=== PATIENT | female | born 1950 | race Caucasian/White ===

== ENCOUNTER → 2016-12-14 | Outpatient (CLI) | payer OTHER, MEDICARE | LOC: BRMIMAGING 08:36 | PROVIDERS: ATTEND Family Medicine | DX: Z13.820 Encounter for screening for osteoporosis (principal); M81.0 Age-related osteoporosis without current pathological fracture; Z82.62 Family history of osteoporosis; Z78.0 Asymptomatic menopausal state ==

== ENCOUNTER → 2017-01-01 | Outpatient (CLI) | payer OTHER, MEDICARE ==
[~2017-01-01] MED LIST: IOPAMIDOL (ISOVUE 370) 100 ML BTL IV ONE
== END ==
LOC: FIMAGING 09:51
PROVIDERS: ATTEND Internal Medicine Cardiovascular Disease
DX: I48.91 Unspecified atrial fibrillation (principal)
CPT/HCPCS: 75572; Q9967

== ENCOUNTER 2017-01-08 06:57 | Observation (INO) | payer OTHER, MEDICARE ==
[2017-01-08] MEDS ORDERED: NS 1,000 ML IV ONE (07:02)
--- NOTE | 2017-01-08 07:18 | CPEKG ---
Heart Rate: 112 RR Interval: 536 QRSD Interval: 130 QT Interval: 376 QTC Interval: 514 QRS [place]: -67 T Wave [place]: -4 EKG Severity - ABNORMAL ECG - EKG Impression: ATRIAL FIBRILLATION, V-RATE 94-147 EKG Impression: RIGHT BUNDLE BRANCH BLOCK EKG Impression: ATRIAL FIBRILATION IS NEW IN COMPARSION TO PRIOR Electronically Signed By: Dion Altamirano 08-Jan-2017 10:05:52
--- NOTE | 2017-01-08 07:18 | CPEKG ---
Heart Rate: 112 RR Interval: 536 QRSD Interval: 130 QT Interval: 376 QTC Interval: 514 QRS [place]: -67 T Wave [place]: -4 EKG Severity - ABNORMAL ECG - EKG Impression: ATRIAL FIBRILLATION, V-RATE 94-147 EKG Impression: RIGHT BUNDLE BRANCH BLOCK EKG Impression: ATRIAL FIBRILATION IS NEW IN COMPARSION TO PRIOR Electronically Signed By: Dion Altamirano 08-Jan-2017 10:05:52
[2017-01-08 07:35] LABS: PLATELET COUNT 236 10^3/uL (150-400)
[2017-01-08 07:50] LABS: INR 1.04 (0.83-1.16); PROTIME(PATIENT) 13.5 SEC (12.0-15.0)
[2017-01-08] MEDS ORDERED: HEPARIN 10,000 UNIT/10 ML MDV ONE (08:22)
[2017-01-08] MEDS ORDERED: HEPARIN/DEXTROSE 25,000 UNIT/500 ML BAG ONE (08:22)
[2017-01-08] MEDS ORDERED: IOPAMIDOL (ISOVUE-300) 100 ML BTL ONE ×2 (08:23→10:29)
[2017-01-08] MEDS ORDERED: BUPIVACAINE 0.5% 30 ML SDV ONE (08:23)
[2017-01-08] MEDS ORDERED: LIDOCAINE 1% 300 MG/30 ML SDV ONE (08:23)
[2017-01-08] MEDS ORDERED: MIDAZOLAM 2 MG/2 ML VIAL IVP ONE (08:24)
--- NOTE | 2017-01-08 08:26 | PDANEPAE ---
ANE History of Present Illness 66 yo for afib ablation ANE Past Medical History - Cardiovascular History Hx Hypertension: No Hx Arrhythmias: Yes Hx Chest Pain: No Hx Coronary Artery / Peripheral Vascular Disease: No Hx CHF / Valvular Disease: No Hx Palpitations: No - Pulmonary History Hx COPD: No Hx Asthma/Reactive Airway Disease: No Hx Recent Upper Respiratory Infection: No Hx Oxygen in Use at Home: No Hx Sleep Apnea: No - Endocrine History Hx Diabetes: No Hypothyroid: Yes - Chronic Pain History Chronic Pain: No ANE Review of Systems Review of Systems: - Exercise capacity METS (RN): 4 METS ANE Patient History - Allergies Allergies/Adverse Reactions: epinephrine Allergy (Verified 01/01/17 09:41) "MY HEART GOES NUTS" - Home Medications Home medications: home medication list seen and reviewed Home Medications: Herbals/Supplements -Info Only 1 ea PO DAILY 03/14/15 [Last Taken 01/07/17 17:00 ] Multivitamins [Multivitamin (*)] 1 each PO DAILY 03/14/15 [Last Taken 01/07/17 17:00] Bastian-3 Fatty Acids [Fish Oil 1000 mg (*)] 1,000 mg PO BID 03/14/15 [Last Taken 03/13/15 08:00] Thyroid,Pork [ARMOUR THYROID] 15 mg PO BID 03/14/15 [Last Taken 01/07/17 22:00] Compouded Estrogen 90/10 1 each PO DAILY 01/01/17 [Last Taken 01/05/17 08:00] Compounded Progesterone 40 1 each PO HS 01/01/17 [Last Taken 01/06/17 22:00] - NPO status NPO Status: no food or drink >8 hours - Anes Hx Anes Hx: slow to awaken from anesthesia - Smoking Hx Smoking Status: Former smoker ANE Labs/Vital Signs - Labs Result Diagrams: 01/08/17 07:20 01/08/17 07:20 - Vital Signs Height: 5 ft 4 in Weight: 64.41 kg ANE Physical Exam - Airway Neck exam: FROM Mallampati Score: Class 2 Mouth exam: normal dental/mouth exam - Pulmonary Pulmonary: no respiratory distress - Cardiovascular Cardiovascular: regular rate and rhythym - ASA Status ASA Status: II ANE Anesthesia Plan Anesthesia Plan: general endotracheal anesthesia
[2017-01-08] MEDS ORDERED: REMIFENTANIL HCL 1 MG VIAL ONE ×2 (08:30→10:51)
[2017-01-08] MEDS ORDERED: fentaNYL 100 MCG/2 ML INJ ONE (08:30)
[2017-01-08] MEDS ORDERED: PROPOFOL/EMULSION 500 MG/50 ML BOTTLE IV ONE ×2 (08:30→10:51)
--- NOTE | 2017-01-08 08:44 | PDGENHP ---
History & Physical Chief Complaint: AFIB History of Present Illness: Symptomatic AFIB Pertinent Past, Social, Family History: None Relevant Physical Exam: S1S2 irreg. CTA. A O x 3 Cardiorespiratory Assessment: AFIB for CB PVI isolation.
[2017-01-08] MEDS ORDERED: ROCURONIUM 100 MG/10 ML VIAL ONE (10:50)
[2017-01-08] MEDS ORDERED: PROTAMINE SULFATE 50 MG/5 ML VIAL IVP ONE (12:01)
[2017-01-08] MEDS ORDERED: PROMETHAZINE HCL 25 MG/ML INJ IVP PRN ×2 (12:21→14:26)
[2017-01-08] MEDS ORDERED: NALOXONE HCL 0.4 MG/ML INJ IVP PRN (12:21)
[2017-01-08] MEDS ORDERED: fentaNYL 100 MCG/2 ML INJ IVP PRN (12:21)
--- NOTE | 2017-01-08 12:21 | EPPROC ---
Electrophysiology Procedure Note: ELECTROPHYSIOLOGIC STUDY AND BALLOON-CATHETER MEDIATED CRYOABLATION FOR PAROXYSMAL ATRIAL FIBRILLATION and ATRIAL FLUTTER Procedures performed: 71718-16 EP evaluation with RA/RV/LA pace/record, with arrhythmia induction 35197-45 EP evaluation with RA/RV pace record, insert/reposition catheter, with arrhythmia induction 79393 Atrial fibrillation ablation Second arrhythmia Intracardiac echocardiogram Transseptal puncture Fluoroscopy INDICATION: Paroxysmal atrial fibrillation Atrial flutter PROCEDURE: The patient arrived in the Electrophysiology Laboratory in the fasting state. The right groin, left groin and right infraclavicular area were prepped and draped in the usual sterile fashion. Anesthesiologist administered general anesthesia Dr. Dudley . All catheters were placed percutaneously using the Seldinger technique and advanced into position under fluoroscopic guidance. One #7 [place] deflectable octapolar electrode catheter was placed in the His-bundle position via the left femoral vein (2mm spacing, IVC electrode for unipolar recordings). This catheter was placed in the coronary sinus after transseptal puncture and later placed in the SVC-R subclavian vein junction to pace the right phrenic nerve during right pulmonary vein ablation. One #8 [place] AcuNaV ultrasound catheter was placed in the left femoral vein and advanced into the right atrium. One #4 [place] sheath was inserted into the left femoral artery via percutaneous technique and used for continuous arterial blood pressure monitoring and intermittent ACT determination. Programmed stimulation was performed from the right atrium, left atrium (CS) and right ventricle. There was no evidence of AV accessory pathway. Intracardiac echo evaluation of the left atrium and pulmonary veins was performed. Baseline ACT was drawn and heparin bolus was administered and heparin drip was started prior to transseptal puncture. ACT was checked every 15 minutes and maintained in the range of 350-400 seconds. One 14Fr short sheath was placed in the right femoral vein. One 8Fr SL1 sheath was advanced into the right atrium via the 14Fr short sheath. Transseptal puncture was performed under intracardiac ultrasound, fluoroscopic and hemodynamic guidance placing the sheath into the left atrium. [place] RF needle ( C0 curve) was used. The mean left atrial pressure was 12 mmHg. Pulmonary vein angiogram was done using SL1 sheath. CT angiography of pulmonary veins was done previously. There were distinct LSPV, LIPV, RSPV and RIPV. 3D map of LA and PV was done using Pentaray catheter. The SL1 sheath was exchanged for a Medtronic Flexcath sheath using an Amplatz stiff guide wire. A 28 mm Cryoballoon catheter with a 20 mm Achieve catheter was placed via the sheath into the left atrium. Intracardiac ultrasound and PV angiograms were used to assist in placing the mapping catheter at the antrum of the pulmonary veins. All pulmonary veins were isolated successfully using cryoballoon ablation using freeze/thaw/freeze cycles at 2-3-minute intervals, with good [id number] of isolation. Coumadin ridge/Ligament of [place] region was ablated. Pre and post pulmonary vein recordings were measured on the spiral Achieve catheter to ensure complete pulmonary vein isolation. During the right-sided ablation, phrenic nerve pacing was performed to assess the phrenic nerve strength ( manually and with ICE visualization of liver movement during phrenic capture) and the phrenic nerve was intact throughout the right-sided ablation and at the end of the procedure. An esophageal temperature probe (12 electrode, Circa) was placed by the anesthesiologist at the beginning of the procedure. Esophageal temperature was monitored continuously and cryoablation was interrupted if esophageal temperature was <15 C. Cryoapplications 7 total cryoablation time 1002 s. Sheath was withdrawn into the RA and exchanged for Agilis sheath. Halo catheter was placed along the TA. Using 8 mm RF catheter, ablation was performed in the CT isthmus at 0630 oclock in the ITALIAN view. Bidirectional block was achieved. 15 F venous sheath was removed on the table after pursestring suture was placed around the sheath. ICE imaging post ablation was consistent with pre ablation imaging with no changes noted, moreover there was no left atrial/left ventricular thrombus and no pericardial effusion. The catheters were withdrawn. Protamine was given. The sheaths will be removed and manual pressure used for hemostasis in the ICU . The patient was recovered from anesthesia. There were no complications. The patient was arousable and moving all four extremities at the end of the procedure. CONCLUSIONS: 1. Paroxysmal atrial fibrillation. 2. Successful pulmonary vein isolation procedure (left and right pulmonary vein antrum) using cryoballoon ablation. 3. Atrial flutter, successful ablation with bidirectional conduction block achieved. 4. No apparent complications. Patient Problems: Problems Problem Status Onset Atrial fibrillation Acute
--- NOTE | 2017-01-08 12:21 | EPPROC ---
Electrophysiology Procedure Note: ELECTROPHYSIOLOGIC STUDY AND BALLOON-CATHETER MEDIATED CRYOABLATION FOR PAROXYSMAL ATRIAL FIBRILLATION and ATRIAL FLUTTER Procedures performed: 12055-60 EP evaluation with RA/RV/LA pace/record, with arrhythmia induction 85375-63 EP evaluation with RA/RV pace record, insert/reposition catheter, with arrhythmia induction 44183 Atrial fibrillation ablation Second arrhythmia Intracardiac echocardiogram Transseptal puncture Fluoroscopy INDICATION: Paroxysmal atrial fibrillation Atrial flutter PROCEDURE: The patient arrived in the Electrophysiology Laboratory in the fasting state. The right groin, left groin and right infraclavicular area were prepped and draped in the usual sterile fashion. Anesthesiologist administered general anesthesia Dr. Dudley . All catheters were placed percutaneously using the Seldinger technique and advanced into position under fluoroscopic guidance. One #7 [place] deflectable octapolar electrode catheter was placed in the His-bundle position via the left femoral vein (2mm spacing, IVC electrode for unipolar recordings). This catheter was placed in the coronary sinus after transseptal puncture and later placed in the SVC-R subclavian vein junction to pace the right phrenic nerve during right pulmonary vein ablation. One #8 [place] AcuNaV ultrasound catheter was placed in the left femoral vein and advanced into the right atrium. One #4 [place] sheath was inserted into the left femoral artery via percutaneous technique and used for continuous arterial blood pressure monitoring and intermittent ACT determination. Programmed stimulation was performed from the right atrium, left atrium (CS) and right ventricle. There was no evidence of AV accessory pathway. Intracardiac echo evaluation of the left atrium and pulmonary veins was performed. Baseline ACT was drawn and heparin bolus was administered and heparin drip was started prior to transseptal puncture. ACT was checked every 15 minutes and maintained in the range of 350-400 seconds. One 14Fr short sheath was placed in the right femoral vein. One 8Fr SL1 sheath was advanced into the right atrium via the 14Fr short sheath. Transseptal puncture was performed under intracardiac ultrasound, fluoroscopic and hemodynamic guidance placing the sheath into the left atrium. [place] RF needle ( C0 curve) was used. The mean left atrial pressure was 12 mmHg. Pulmonary vein angiogram was done using SL1 sheath. CT angiography of pulmonary veins was done previously. There were distinct LSPV, LIPV, RSPV and RIPV. 3D map of LA and PV was done using Pentaray catheter. The SL1 sheath was exchanged for a Medtronic Flexcath sheath using an Amplatz stiff guide wire. A 28 mm Cryoballoon catheter with a 20 mm Achieve catheter was placed via the sheath into the left atrium. Intracardiac ultrasound and PV angiograms were used to assist in placing the mapping catheter at the antrum of the pulmonary veins. All pulmonary veins were isolated successfully using cryoballoon ablation using freeze/thaw/freeze cycles at 2-3-minute intervals, with good [id number] of isolation. Coumadin ridge/Ligament of [place] region was ablated. Pre and post pulmonary vein recordings were measured on the spiral Achieve catheter to ensure complete pulmonary vein isolation. During the right-sided ablation, phrenic nerve pacing was performed to assess the phrenic nerve strength ( manually and with ICE visualization of liver movement during phrenic capture) and the phrenic nerve was intact throughout the right-sided ablation and at the end of the procedure. An esophageal temperature probe (12 electrode, Circa) was placed by the anesthesiologist at the beginning of the procedure. Esophageal temperature was monitored continuously and cryoablation was interrupted if esophageal temperature was <15 C. Cryoapplications 7 total cryoablation time 1002 s. Sheath was withdrawn into the RA and exchanged for Agilis sheath. Halo catheter was placed along the TA. Using 8 mm RF catheter, ablation was performed in the CT isthmus at 0630 oclock in the SERBIAN view. Bidirectional block was achieved. 15 F venous sheath was removed on the table after pursestring suture was placed around the sheath. ICE imaging post ablation was consistent with pre ablation imaging with no changes noted, moreover there was no left atrial/left ventricular thrombus and no pericardial effusion. The catheters were withdrawn. Protamine was given. The sheaths will be removed and manual pressure used for hemostasis in the ICU . The patient was recovered from anesthesia. There were no complications. The patient was arousable and moving all four extremities at the end of the procedure. CONCLUSIONS: 1. Paroxysmal atrial fibrillation. 2. Successful pulmonary vein isolation procedure (left and right pulmonary vein antrum) using cryoballoon ablation. 3. Atrial flutter, successful ablation with bidirectional conduction block achieved. 4. No apparent complications. Patient Problems: Problems Problem Status Onset Atrial fibrillation Acute
--- NOTE | 2017-01-08 12:21 | EPPROC ---
Electrophysiology Procedure Note: ELECTROPHYSIOLOGIC STUDY AND BALLOON-CATHETER MEDIATED CRYOABLATION FOR PAROXYSMAL ATRIAL FIBRILLATION and ATRIAL FLUTTER Procedures performed: 19275-14 EP evaluation with RA/RV/LA pace/record, with arrhythmia induction 78580-15 EP evaluation with RA/RV pace record, insert/reposition catheter, with arrhythmia induction 44825 Atrial fibrillation ablation Second arrhythmia Intracardiac echocardiogram Transseptal puncture Fluoroscopy INDICATION: Paroxysmal atrial fibrillation Atrial flutter PROCEDURE: The patient arrived in the Electrophysiology Laboratory in the fasting state. The right groin, left groin and right infraclavicular area were prepped and draped in the usual sterile fashion. Anesthesiologist administered general anesthesia Dr. Dudley . All catheters were placed percutaneously using the Seldinger technique and advanced into position under fluoroscopic guidance. One #7 [place] deflectable octapolar electrode catheter was placed in the His-bundle position via the left femoral vein (2mm spacing, IVC electrode for unipolar recordings). This catheter was placed in the coronary sinus after transseptal puncture and later placed in the SVC-R subclavian vein junction to pace the right phrenic nerve during right pulmonary vein ablation. One #8 [place] AcuNaV ultrasound catheter was placed in the left femoral vein and advanced into the right atrium. One #4 [place] sheath was inserted into the left femoral artery via percutaneous technique and used for continuous arterial blood pressure monitoring and intermittent ACT determination. Programmed stimulation was performed from the right atrium, left atrium (CS) and right ventricle. There was no evidence of AV accessory pathway. Intracardiac echo evaluation of the left atrium and pulmonary veins was performed. Baseline ACT was drawn and heparin bolus was administered and heparin drip was started prior to transseptal puncture. ACT was checked every 15 minutes and maintained in the range of 350-400 seconds. One 14Fr short sheath was placed in the right femoral vein. One 8Fr SL1 sheath was advanced into the right atrium via the 14Fr short sheath. Transseptal puncture was performed under intracardiac ultrasound, fluoroscopic and hemodynamic guidance placing the sheath into the left atrium. [place] RF needle ( C0 curve) was used. The mean left atrial pressure was 12 mmHg. Pulmonary vein angiogram was done using SL1 sheath. CT angiography of pulmonary veins was done previously. There were distinct LSPV, LIPV, RSPV and RIPV. 3D map of LA and PV was done using Pentaray catheter. The SL1 sheath was exchanged for a Medtronic Flexcath sheath using an Amplatz stiff guide wire. A 28 mm Cryoballoon catheter with a 20 mm Achieve catheter was placed via the sheath into the left atrium. Intracardiac ultrasound and PV angiograms were used to assist in placing the mapping catheter at the antrum of the pulmonary veins. All pulmonary veins were isolated successfully using cryoballoon ablation using freeze/thaw/freeze cycles at 2-3-minute intervals, with good [id number] of isolation. Coumadin ridge/Ligament of [place] region was ablated. Pre and post pulmonary vein recordings were measured on the spiral Achieve catheter to ensure complete pulmonary vein isolation. During the right-sided ablation, phrenic nerve pacing was performed to assess the phrenic nerve strength ( manually and with ICE visualization of liver movement during phrenic capture) and the phrenic nerve was intact throughout the right-sided ablation and at the end of the procedure. An esophageal temperature probe (12 electrode, Circa) was placed by the anesthesiologist at the beginning of the procedure. Esophageal temperature was monitored continuously and cryoablation was interrupted if esophageal temperature was <15 C. Cryoapplications 7 total cryoablation time 1002 s. Sheath was withdrawn into the RA and exchanged for Agilis sheath. Halo catheter was placed along the TA. Using 8 mm RF catheter, ablation was performed in the CT isthmus at 0630 oclock in the [place]EL[place] view. Bidirectional block was achieved. 15 F venous sheath was removed on the table after pursestring suture was placed around the sheath. ICE imaging post ablation was consistent with pre ablation imaging with no changes noted, moreover there was no left atrial/left ventricular thrombus and no pericardial effusion. The catheters were withdrawn. Protamine was given. The sheaths will be removed and manual pressure used for hemostasis in the ICU . The patient was recovered from anesthesia. There were no complications. The patient was arousable and moving all four extremities at the end of the procedure. CONCLUSIONS: 1. Paroxysmal atrial fibrillation. 2. Successful pulmonary vein isolation procedure (left and right pulmonary vein antrum) using cryoballoon ablation. 3. Atrial flutter, successful ablation with bidirectional conduction block achieved. 4. No apparent complications. Patient Problems: Problems Problem Status Onset Atrial fibrillation Acute
[2017-01-08] MEDS ORDERED: ONDANSETRON 4 MG/2 ML VIAL IVP PRN (12:22)
[2017-01-08] MEDS ORDERED: ACETAMINOPHEN 325 MG TAB PO PRN (12:22)
[2017-01-08] MEDS ORDERED: OXYCODONE/APAP 5/325 TAB PO PRN (12:22)
[2017-01-08] MEDS ORDERED: ATROPINE SULFATE 1 MG/10 ML SYR ONE (12:41)
--- NOTE | 2017-01-08 12:43 | POSTANESTH ---
Post Anesthetic Evaluation Cardiovascular Status: Normal, Stable Respiratory Status: Normal, Stable Level of Consciousness/Mental Status: Can Participate in Eval Pain Control: Adequate, Prn Tx Ordered Nausea/Vomiting Control: Adequate, Prn Tx Ordered Complications Possibly Related to Anesthesia: None Noted
--- NOTE | 2017-01-08 13:39 | CPEKG ---
Heart Rate: 87 RR Interval: 690 P-R Interval: 156 QRSD Interval: 146 QT Interval: 432 QTC Interval: 520 P [place]: 68 QRS [place]: -37 T Wave [place]: -15 EKG Severity - ABNORMAL ECG - EKG Impression: SINUS RHYTHM EKG Impression: PROBABLE LEFT ATRIAL ABNORMALITY EKG Impression: RIGHT BUNDLE BRANCH BLOCK EKG Impression: NORMAL SINUS RHYTHM HAS REPLACED ATRIAL FIBRILLATION ON PRIOR ECG Electronically Signed By: Dion Altamirano 08-Jan-2017 14:15:28
--- NOTE | 2017-01-08 13:39 | CPEKG ---
Heart Rate: 87 RR Interval: 690 P-R Interval: 156 QRSD Interval: 146 QT Interval: 432 QTC Interval: 520 P [place]: 68 QRS [place]: -37 T Wave [place]: -15 EKG Severity - ABNORMAL ECG - EKG Impression: SINUS RHYTHM EKG Impression: PROBABLE LEFT ATRIAL ABNORMALITY EKG Impression: RIGHT BUNDLE BRANCH BLOCK EKG Impression: NORMAL SINUS RHYTHM HAS REPLACED ATRIAL FIBRILLATION ON PRIOR ECG Electronically Signed By: Dion Altamirano 08-Jan-2017 14:15:28
[2017-01-08] MEDS: ENOXAPARIN 60 MG/0.6 ML SYR SC SCH (17:30)
[2017-01-08] MEDS ORDERED: NON-FORMULARY NEW DRUG (Thyroid,Pork [Armour Thyroid] 15 MG) PO SCH (21:00)
[2017-01-09] MEDS: ENOXAPARIN 60 MG/0.6 ML SYR SC SCH (05:29)
[2017-01-09 05:46] LABS: PLATELET COUNT 205 10^3/uL (150-400)
[2017-01-09 05:54] LABS: INR 1.09 (0.83-1.16)
[2017-01-09 06:02] LABS: CREATINE KINASE 219 IU/L (0-156)
[2017-01-09 07:39] VITALS: BP 112/67; PULSE 83; RESP 24; TEMP 98.5; O2SAT 97
--- NOTE | 2017-01-09 09:06 | CPEKG ---
Heart Rate: 89 RR Interval: 674 P-R Interval: 164 QRSD Interval: 142 QT Interval: 408 QTC Interval: 497 P [place]: 66 QRS [place]: -29 T Wave [place]: -19 EKG Severity - ABNORMAL ECG - EKG Impression: SINUS RHYTHM EKG Impression: RIGHT BUNDLE BRANCH BLOCK Electronically Signed By: Dion Altamirano 09-Jan-2017 17:40:09
--- NOTE | 2017-01-09 09:06 | CPEKG ---
Heart Rate: 89 RR Interval: 674 P-R Interval: 164 QRSD Interval: 142 QT Interval: 408 QTC Interval: 497 P [place]: 66 QRS [place]: -29 T Wave [place]: -19 EKG Severity - ABNORMAL ECG - EKG Impression: SINUS RHYTHM EKG Impression: RIGHT BUNDLE BRANCH BLOCK Electronically Signed By: Dion Altamirano 09-Jan-2017 17:40:09
--- NOTE | 2017-01-09 09:42 | ECHO ---
[email or web address] [address] [address] Main: [phone] Fax: Transthoracic Echocardiogram Name: TYREE FERRIS MR#: [id number] Study Date: 01/09/2017 Study Time: 08:36 AM Date of : 1950 Age: 66 year(s) Height: 162.6 cm (64 in.) Weight: 64.41 kg (142 lb.) BSA: 1.69 m2 Gender: Female Examination: Echo Indication: Post EP Image Quality: Contrast: Requested by: Tl Man BP: 112 mmHg/67 mmHg Heart Rate: Rhythm: Normal sinus rhythm Indication: Post EP Procedure Staff [employer] Advisor: Gt Avalos Reading Physician: Tl Man Requesting Provider: Conclusions: Normal size left ventricle. Normal global systolic LV function. Small left to right shunt across the interatrial septum noted with color flow Doppler. Post transeptal puncture. Mild mitral valve regurgitation is present. Mild tricuspid regurgitation is present. Measurements: Chambers Valvular Assessment AV/MV Valvular Assessment TV/PV Normal Normal Normal Name Value Range Name Value Range Name Value Range Ao Jenni (MM): 2.4 cm (2.2 cm-3.7 AV Vmax: 1.54 m/s (1 m/s-1.7 TR Vmax: 2.69 mm/s ( - ) cm) m/s) TR PGmax: 29 mmHg ( - ) IVSd (2D): 0.7 cm (0.6 cm-1.1 AV maxP mmHg ( - ) syst. PAP: 34 mmHg ( - ) cm) AV meanP mmHg ( - ) PV Vmax: 0.83 m/s (0.6 m/s-0.9 LVDd (2D): 4.5 cm (3.9 cm-5.3 EDUARDO (VTI): 1.8 cm ( - ) m/s) cm) MV meanP mmHg ( - ) PV PGmax: 3 mmHg ( - ) LVDs (2D): 2.7 cm (2.1 cm-4 MVA (Vmax): 2.4 m/s ( - ) cm) LVPWd (2D): 0.8 cm ( - ) LVOTd 1.9 cm 1.9 cm mm LVEF (2D): 70 (>=54 %) Continued Measurements: Chambers Valvular Assessment AV/MV Valvular Assessment TV/PV Name Value Name Value Name Value LADs Lon.6 cm MV Annulus: 3.1 cm CVP (est.): 5 mmHg LA Area: 16.6 cm2 MV VTI: 23.40 cm LA Volume: 53 ml MR ERO: 0.120 cm2 Patient: TYREE FERRIS Study Date: 01/09/2017 Page 1 of 2 08:36 AM LA Volume Index: 31.4 ml/m2 MR PISA radius: 6 mm MR Reg. Volume: 21 ml MR Reg. Fraction: 12 % Findings: Left Ventricle: Normal size left ventricle. Normal global systolic LV function. EF is 70 %. No regional wall motion abnormality. Right Ventricle: Normal size right ventricle. Normal RV function. Left Atrium: The left atrium is normal in size. Right Atrium: The right atrium is normal in size. Small left to right shunt across the interatrial septum noted with color flow Doppler. Post transeptal puncture. Mitral Valve: The mitral valve is normal in appearance. Mild mitral valve regurgitation is present. Aortic Valve: The aortic valve is normal in appearance and function. The aortic valve is tri-leaflet. Tricuspid Valve: The tricuspid valve appears normal. Mild tricuspid regurgitation is present. The pulmonary artery pressure is normal. Pulmonic Valve: The pulmonic valve is normal in appearance and function. Aorta: The aorta is normal. Pericardium: Trivial pericardial effusion. (No Signature Object) Patient: TYREE FERRIS Study Date: 01/09/2017 Page 2 of 2 08:36 AM [id number]
--- NOTE | 2017-01-09 09:42 | ECHO ---
[email or web address] [address] [address] Main: [phone] Fax: Transthoracic Echocardiogram Name: TYREE FERRIS MR#: [id number] Study Date: 01/09/2017 Study Time: 08:36 AM Date of : 1950 Age: 66 year(s) Height: 162.6 cm (64 in.) Weight: 64.41 kg (142 lb.) BSA: 1.69 m2 Gender: Female Examination: Echo Indication: Post EP Image Quality: Contrast: Requested by: Tl Man BP: 112 mmHg/67 mmHg Heart Rate: Rhythm: Normal sinus rhythm Indication: Post EP Procedure Staff Results Technician: Gt Avalos Reading Physician: Tl Man Requesting Provider: Conclusions: Normal size left ventricle. Normal global systolic LV function. Small left to right shunt across the interatrial septum noted with color flow Doppler. Post transeptal puncture. Mild mitral valve regurgitation is present. Mild tricuspid regurgitation is present. Measurements: Chambers Valvular Assessment AV/MV Valvular Assessment TV/PV Normal Normal Normal Name Value Range Name Value Range Name Value Range Ao Jenni (MM): 2.4 cm (2.2 cm-3.7 AV Vmax: 1.54 m/s (1 m/s-1.7 TR Vmax: 2.69 mm/s ( - ) cm) m/s) TR PGmax: 29 mmHg ( - ) IVSd (2D): 0.7 cm (0.6 cm-1.1 AV maxP mmHg ( - ) syst. PAP: 34 mmHg ( - ) cm) AV meanP mmHg ( - ) PV Vmax: 0.83 m/s (0.6 m/s-0.9 LVDd (2D): 4.5 cm (3.9 cm-5.3 EDUARDO (VTI): 1.8 cm ( - ) m/s) cm) MV meanP mmHg ( - ) PV PGmax: 3 mmHg ( - ) LVDs (2D): 2.7 cm (2.1 cm-4 MVA (Vmax): 2.4 m/s ( - ) cm) LVPWd (2D): 0.8 cm ( - ) LVOTd 1.9 cm 1.9 cm mm LVEF (2D): 70 (>=54 %) Continued Measurements: Chambers Valvular Assessment AV/MV Valvular Assessment TV/PV Name Value Name Value Name Value LADs Lon.6 cm MV Annulus: 3.1 cm CVP (est.): 5 mmHg LA Area: 16.6 cm2 MV VTI: 23.40 cm LA Volume: 53 ml MR ERO: 0.120 cm2 Patient: TYREE FERRIS Study Date: 01/09/2017 Page 1 of 2 08:36 AM LA Volume Index: 31.4 ml/m2 MR PISA radius: 6 mm MR Reg. Volume: 21 ml MR Reg. Fraction: 12 % Findings: Left Ventricle: Normal size left ventricle. Normal global systolic LV function. EF is 70 %. No regional wall motion abnormality. Right Ventricle: Normal size right ventricle. Normal RV function. Left Atrium: The left atrium is normal in size. Right Atrium: The right atrium is normal in size. Small left to right shunt across the interatrial septum noted with color flow Doppler. Post transeptal puncture. Mitral Valve: The mitral valve is normal in appearance. Mild mitral valve regurgitation is present. Aortic Valve: The aortic valve is normal in appearance and function. The aortic valve is tri-leaflet. Tricuspid Valve: The tricuspid valve appears normal. Mild tricuspid regurgitation is present. The pulmonary artery pressure is normal. Pulmonic Valve: The pulmonic valve is normal in appearance and function. Aorta: The aorta is normal. Pericardium: Trivial pericardial effusion. (No Signature Object) Patient: TYREE FERRIS Study Date: 01/09/2017 Page 2 of 2 08:36 AM [id number]
--- NOTE | 2017-01-09 09:42 | ECHO ---
[email or web address] [address] [address] Main: [phone] Fax: Transthoracic Echocardiogram Name: TYREE FERRIS MR#: [id number] Study Date: 01/09/2017 Study Time: 08:36 AM Date of : 1950 Age: 66 year(s) Height: 162.6 cm (64 in.) Weight: 64.41 kg (142 lb.) BSA: 1.69 m2 Gender: Female Examination: Echo Indication: Post EP Image Quality: Contrast: Requested by: Tl Man BP: 112 mmHg/67 mmHg Heart Rate: Rhythm: Normal sinus rhythm Indication: Post EP Procedure Staff Roll Sheeting Cutter: Gt Avalos Reading Physician: Tl Man Requesting Provider: Conclusions: Normal size left ventricle. Normal global systolic LV function. Small left to right shunt across the interatrial septum noted with color flow Doppler. Post transeptal puncture. Mild mitral valve regurgitation is present. Mild tricuspid regurgitation is present. Measurements: Chambers Valvular Assessment AV/MV Valvular Assessment TV/PV Normal Normal Normal Name Value Range Name Value Range Name Value Range Ao Jenni (MM): 2.4 cm (2.2 cm-3.7 AV Vmax: 1.54 m/s (1 m/s-1.7 TR Vmax: 2.69 mm/s ( - ) cm) m/s) TR PGmax: 29 mmHg ( - ) IVSd (2D): 0.7 cm (0.6 cm-1.1 AV maxP mmHg ( - ) syst. PAP: 34 mmHg ( - ) cm) AV meanP mmHg ( - ) PV Vmax: 0.83 m/s (0.6 m/s-0.9 LVDd (2D): 4.5 cm (3.9 cm-5.3 EDUARDO (VTI): 1.8 cm ( - ) m/s) cm) MV meanP mmHg ( - ) PV PGmax: 3 mmHg ( - ) LVDs (2D): 2.7 cm (2.1 cm-4 MVA (Vmax): 2.4 m/s ( - ) cm) LVPWd (2D): 0.8 cm ( - ) LVOTd 1.9 cm 1.9 cm mm LVEF (2D): 70 (>=54 %) Continued Measurements: Chambers Valvular Assessment AV/MV Valvular Assessment TV/PV Name Value Name Value Name Value LADs Lon.6 cm MV Annulus: 3.1 cm CVP (est.): 5 mmHg LA Area: 16.6 cm2 MV VTI: 23.40 cm LA Volume: 53 ml MR ERO: 0.120 cm2 Patient: TYREE FERRIS Study Date: 01/09/2017 Page 1 of 2 08:36 AM LA Volume Index: 31.4 ml/m2 MR PISA radius: 6 mm MR Reg. Volume: 21 ml MR Reg. Fraction: 12 % Findings: Left Ventricle: Normal size left ventricle. Normal global systolic LV function. EF is 70 %. No regional wall motion abnormality. Right Ventricle: Normal size right ventricle. Normal RV function. Left Atrium: The left atrium is normal in size. Right Atrium: The right atrium is normal in size. Small left to right shunt across the interatrial septum noted with color flow Doppler. Post transeptal puncture. Mitral Valve: The mitral valve is normal in appearance. Mild mitral valve regurgitation is present. Aortic Valve: The aortic valve is normal in appearance and function. The aortic valve is tri-leaflet. Tricuspid Valve: The tricuspid valve appears normal. Mild tricuspid regurgitation is present. The pulmonary artery pressure is normal. Pulmonic Valve: The pulmonic valve is normal in appearance and function. Aorta: The aorta is normal. Pericardium: Trivial pericardial effusion. (No Signature Object) Patient: TYREE FERRIS Study Date: 01/09/2017 Page 2 of 2 08:36 AM [id number]
--- NOTE | 2017-01-09 11:30 | ASMTCMCOM ---
CM Note CM Note Notes: Pt is s/p EP studies w/ablation. Anticipate dc home independantly today. Met w/pt who said her friend will stay with her initially. Discussed w/RN, no other CM needs. Date Signed: 01/09/2017 11:30 AM Electronically Signed By:Mavis Valenzuela RN
--- NOTE | 2017-01-09 13:31 | ASDISCHSUM ---
Discharge Information Plan Status:Home with No Needs Medically Cleared to Leave: Discharge Date:01/09/2017 01:13 PM CM D/C Disposition:Home, Routine, Self-Care ADT D/C Disposition:Home, Routine, Self-Care Projected Discharge Date:01/09/2017 01:13 PM Transportation at D/C: Discharge Delay Reason: Follow-Up Date:01/09/2017 01:13 PM Discharge Slot: Final Diagnosis: Placement Information Patient Contact Information Contact Name:CHRISTALCATHERINEGISELLE Relationship:Friend Address: City: [facility] Phone: [facility]/[place] Code: Email: Financial Information Financial Class: Primary Plan Desc:MEDICARE OUTPATIENT Primary Plan Number:[id number] Secondary Plan Desc:AARP/MDR SUPPLEMENT Secondary Plan Number:[id number] Assessment Information [facility] CM Progress Note CM Note CM Note Notes: Pt is s/p EP studies w/ablation. Anticipate dc home independantly today. Met w/pt who said her friend will stay with her initially. Discussed w/RN, no other CM needs. Date Signed: 01/09/2017 11:30 AM Electronically Signed By:Mavis Valenzuela RN Intervention Information Intervention Type:*Incorrect Registration Date of Service:01/08/2017 03:10 PM Patient Type:Observation Staff Member:LLUVIA Fortune, Ramona Hours: Discipline: Severity: Comment: Intervention Type:*DOMINGUEZ-Signed Date of Service:01/09/2017 11:31 AM Patient Type:Observation Staff Member:Danielle Sheldon Hours: Discipline: Severity: Comment:
--- NOTE | 2017-01-09 13:31 | ASDISCHSUM ---
Discharge Information Plan Status:Home with No Needs Medically Cleared to Leave: Discharge Date:01/09/2017 01:13 PM CM D/C Disposition:Home, Routine, Self-Care ADT D/C Disposition:Home, Routine, Self-Care Projected Discharge Date:01/09/2017 01:13 PM Transportation at D/C: Discharge Delay Reason: Follow-Up Date:01/09/2017 01:13 PM Discharge Slot: Final Diagnosis: Placement Information Patient Contact Information Contact Name:CHRISTALCATHERINEGISELLE Relationship:Friend Address: City: [facility] Phone: [facility] Code: Email: Financial Information Financial Class: Primary Plan Desc:MEDICARE OUTPATIENT Primary Plan Number:[id number] Secondary Plan Desc:AARP/MDR SUPPLEMENT Secondary Plan Number:[id number] Assessment Information [facility] CM Progress Note CM Note CM Note Notes: Pt is s/p EP studies w/ablation. Anticipate dc home independantly today. Met w/pt who said her friend will stay with her initially. Discussed w/RN, no other CM needs. Date Signed: 01/09/2017 11:30 AM Electronically Signed By:Mavis Valenzuela RN Intervention Information Intervention Type:*Incorrect Registration Date of Service:01/08/2017 03:10 PM Patient Type:Observation Staff Member:LLUVIA Fortune, Ramona Hours: Discipline: Severity: Comment: Intervention Type:*DOMINGUEZ-Signed Date of Service:01/09/2017 11:31 AM Patient Type:Observation Staff Member:Danielle Sheldon Hours: Discipline: Severity: Comment:
--- NOTE | 2017-01-09 13:31 | ASDISCHSUM ---
Discharge Information Plan Status:Home with No Needs Medically Cleared to Leave: Discharge Date:01/09/2017 01:13 PM CM D/C Disposition:Home, Routine, Self-Care ADT D/C Disposition:Home, Routine, Self-Care Projected Discharge Date:01/09/2017 01:13 PM Transportation at D/C: Discharge Delay Reason: Follow-Up Date:01/09/2017 01:13 PM Discharge Slot: Final Diagnosis: Placement Information Patient Contact Information Contact Name:CHRISTALCATHERINEGISELLE Relationship:Friend Address: City: [facility] Phone: [facility] Code: Email: Financial Information Financial Class: Primary Plan Desc:MEDICARE OUTPATIENT Primary Plan Number:[id number] Secondary Plan Desc:AARP/MDR SUPPLEMENT Secondary Plan Number:[id number] Assessment Information [facility] CM Progress Note CM Note CM Note Notes: Pt is s/p EP studies w/ablation. Anticipate dc home independantly today. Met w/pt who said her friend will stay with her initially. Discussed w/RN, no other CM needs. Date Signed: 01/09/2017 11:30 AM Electronically Signed By:Mavis Valenzuela RN Intervention Information Intervention Type:*Incorrect Registration Date of Service:01/08/2017 03:10 PM Patient Type:Observation Staff Member:LLUVIA Fortune, Ramona Hours: Discipline: Severity: Comment: Intervention Type:*DOMINGUEZ-Signed Date of Service:01/09/2017 11:31 AM Patient Type:Observation Staff Member:Danielle Sheldon Hours: Discipline: Severity: Comment:
--- NOTE | 2017-01-10 04:22 | GDS ---
[f rep st] DISCHARGE SUMMARY DISCHARGE DIAGNOSES: 1. Atrial fibrillation. 2. Atrial flutter. 3. Ablation of atrial fibrillation and flutter. BRIEF HISTORY: This is a 66-year-old woman with a history of both atrial flutter and atrial fibrillation with documented AFib burdens up to 41% on monitoring. She has tried sotalol and Rythmol without success. HOSPITAL COURSE: Dr. Man performed successful cryoballoon ablation of atrial fibrillation and ablation of atrial flutter with bidirectional block achieved. She has done well overnight. She has not had any chest pain, pressure, or tightness. She denies any shortness of breath. She has not had any pain in her groin sites. Telemetry has demonstrated sinus rhythm without any atrial fibrillation or flutter. TESTING DONE: Echocardiogram demonstrated ejection fraction of 70% with mild MR and TR. There is a small left to right shunt from the transseptal catheter. There is trivial pericardial effusion. EKG demonstrates sinus rhythm with a right bundle branch block. Preablation chest CT on 01/01/2017 demonstrated pectus excavatum and no suspicious nodules. LABORATORY WORK: WBC is 11.37, hemoglobin 13, hematocrit 37.3, platelets 285. INR 1.09. Sodium 138, potassium 4.3, chloride 109, bicarb 22, BUN 14, creatinine 0.7, glucose 85. CK 219, CK-MB fraction 27.2, percent is 12.4, troponin is 5.87. These are elevated and to be expected post ablation. PHYSICAL EXAMINATION: VITAL SIGNS: Blood pressure is 112/67, pulse is 83, respirations 24, temperature is 36.9, O2 saturation on room air is 97%. GENERAL : She is alert and oriented, sitting up in bed, in no acute distress, anxious to go home. CARDIAC: Regular rate, rhythm with a 1/6 systolic ejection murmur at the left sternal border. LUNGS: Clear to auscultation. ABDOMEN: Soft and nontender. GROIN: Sites are without bleeding or hematoma or ecchymosis. LOWER EXTREMITIES: No discoloration. No lower extremity edema. Bilateral +2 pedal pulses. DISCHARGE INSTRUCTIONS: She was given written and verbal activity restrictions post ablation. She understands to notify our office if she has AFib for longer than 24 hours so she can have a cardioversion done. DISCHARGE MEDICATIONS: Please see discharge medication reconciliation. Of note , she will restart her Eliquis tonight, and she will take omeprazole 20 mg for 6 weeks post ablation. FOLLOWUP: She has a followup with Dr. Man January 23 at 2:[address] Monae February 22 at 10:30. /[id number]/MODL MTDD
--- NOTE | 2017-01-12 10:11 | ECHO ---
[email or web address] [place] [id number] Main: [phone] Fax: Transesophageal Echocardiography Name: TYREE FERRIS MR#: [id number] Study Date: 01/08/2017 Study Time: 09:02 AM Date of : 1950 Age: 66 year(s) Height: ( ) Weight: ( ) BSA: Gender: Female Examination: MAY Indication: Pre EP Image Quality: Contrast: Requested by: Tl Man Heart Rate: Rhythm: BP: / Procedure Staff Manager Outpatient: Gt Avalos Reading Physician: Tl Man Requesting Provider: MAY Exam Details Conclusions: Normal global systolic LV function. An agitated saline study was performed and was negative for intracardiac shunting. No thrombus in left appendage. Mild mitral valve regurgitation is present. Measurements: Chambers Valvular Assessment AV/MV Valvular Assessment TV/PV Normal Normal Normal Name Value Range Name Value Range Name Value Range Additional Measurements: Findings: Left Ventricle: Normal global systolic LV function. No regional wall motion abnormality. Right Ventricle: Normal size right ventricle. Left Atrium: An agitated saline study was performed and was negative for intracardiac shunting. Left Atrial Appendage: Good color flow doppler in the left atrial appendage. Normal PW-Doppler flow pattern. No thrombus in left appendage. Mitral Valve: Patient: TYREE FERRIS Study Date: 01/08/2017 Page 1 of 2 09:02 AM The mitral valve is normal in appearance. Mild mitral valve regurgitation is present. Aortic Valve: The aortic valve is normal in appearance and function. The aortic valve is tri-leaflet. Trivial aortic valve regurgitation. Tricuspid Valve: Trivial tricuspid valve regurgitation. Pulmonic Valve: The pulmonic valve is normal in appearance and function. Aorta: The aorta is normal. Pericardium: No pericardial effusion. l1n (No Signature Object) Patient: TYREE FERRIS Study Date: 01/08/2017 Page 2 of 2 09:02 AM [id number]
--- NOTE | 2017-01-12 10:11 | ECHO ---
[id number] [place] [id number] Main: [phone] Fax: Transesophageal Echocardiography Name: TYREE FERRIS MR#: [id number] Study Date: 01/08/2017 Study Time: 09:02 AM Date of : 1950 Age: 66 year(s) Height: ( ) Weight: ( ) BSA: Gender: Female Examination: MAY Indication: Pre EP Image Quality: Contrast: Requested by: Tl Man Heart Rate: Rhythm: BP: / Procedure Staff Official Greeter: Gt Avalos Reading Physician: Tl Man Requesting Provider: MAY Exam Details Conclusions: Normal global systolic LV function. An agitated saline study was performed and was negative for intracardiac shunting. No thrombus in left appendage. Mild mitral valve regurgitation is present. Measurements: Chambers Valvular Assessment AV/MV Valvular Assessment TV/PV Normal Normal Normal Name Value Range Name Value Range Name Value Range Additional Measurements: Findings: Left Ventricle: Normal global systolic LV function. No regional wall motion abnormality. Right Ventricle: Normal size right ventricle. Left Atrium: An agitated saline study was performed and was negative for intracardiac shunting. Left Atrial Appendage: Good color flow doppler in the left atrial appendage. Normal PW-Doppler flow pattern. No thrombus in left appendage. Mitral Valve: Patient: TYREE FERRIS Study Date: 01/08/2017 Page 1 of 2 09:02 AM The mitral valve is normal in appearance. Mild mitral valve regurgitation is present. Aortic Valve: The aortic valve is normal in appearance and function. The aortic valve is tri-leaflet. Trivial aortic valve regurgitation. Tricuspid Valve: Trivial tricuspid valve regurgitation. Pulmonic Valve: The pulmonic valve is normal in appearance and function. Aorta: The aorta is normal. Pericardium: No pericardial effusion. l1n (No Signature Object) Patient: TYREE FERRIS Study Date: 01/08/2017 Page 2 of 2 09:02 AM [id number]
--- NOTE | 2017-01-12 10:11 | ECHO ---
[email or web address] [place] [id number] Main: [phone] Fax: Transesophageal Echocardiography Name: TYREE FERRIS MR#: [id number] Study Date: 01/08/2017 Study Time: 09:02 AM Date of : 1950 Age: 66 year(s) Height: ( ) Weight: ( ) BSA: Gender: Female Examination: MAY Indication: Pre EP Image Quality: Contrast: Requested by: Tl Man Heart Rate: Rhythm: BP: / Procedure Staff News Assignment Editor: Gt Avalos Reading Physician: Tl Man Requesting Provider: MAY Exam Details Conclusions: Normal global systolic LV function. An agitated saline study was performed and was negative for intracardiac shunting. No thrombus in left appendage. Mild mitral valve regurgitation is present. Measurements: Chambers Valvular Assessment AV/MV Valvular Assessment TV/PV Normal Normal Normal Name Value Range Name Value Range Name Value Range Additional Measurements: Findings: Left Ventricle: Normal global systolic LV function. No regional wall motion abnormality. Right Ventricle: Normal size right ventricle. Left Atrium: An agitated saline study was performed and was negative for intracardiac shunting. Left Atrial Appendage: Good color flow doppler in the left atrial appendage. Normal PW-Doppler flow pattern. No thrombus in left appendage. Mitral Valve: Patient: TYREE FERRIS Study Date: 01/08/2017 Page 1 of 2 09:02 AM The mitral valve is normal in appearance. Mild mitral valve regurgitation is present. Aortic Valve: The aortic valve is normal in appearance and function. The aortic valve is tri-leaflet. Trivial aortic valve regurgitation. Tricuspid Valve: Trivial tricuspid valve regurgitation. Pulmonic Valve: The pulmonic valve is normal in appearance and function. Aorta: The aorta is normal. Pericardium: No pericardial effusion. l1n (No Signature Object) Patient: TYREE FERRIS Study Date: 01/08/2017 Page 2 of 2 09:02 AM [id number]
== END 2017-01-09 13:13 | disposition home or self-care (01) ==
LOC: FCATH 06:57 → INTOOBSV 12:30 → F2N 12:30
PROVIDERS: ADMIT Internal Medicine Cardiovascular Disease; ATTEND Internal Medicine Cardiovascular Disease
DX: I48.91 Unspecified atrial fibrillation (principal); I48.92 Unspecified atrial flutter
CPT/HCPCS: 93005; 93306; 93312; 93613; 93655; 93656; 93662; C1730; C1731; C1732; C1733; C1759; C1766; C1893; J1644; J1650; J2250; J2550; J2704; J2720; J3010; Q9967; J0461

== ENCOUNTER → 2017-03-25 | Outpatient (CLI) | payer OTHER, MEDICARE | LOC: BHFA 11:00 | PROVIDERS: ATTEND Internal Medicine Cardiovascular Disease | DX: I48.91 Unspecified atrial fibrillation (principal) ==

== ENCOUNTER → 2017-06-28 | Outpatient (CLI) | payer OTHER, MEDICARE | LOC: BHCLAF 13:15 | PROVIDERS: ATTEND Internal Medicine Cardiovascular Disease | DX: I48.91 Unspecified atrial fibrillation (principal); I05.9 Rheumatic mitral valve disease, unspecified | CPT/HCPCS: 93306-PO ==

== ENCOUNTER → 2017-07-29 | Outpatient (CLI) | payer OTHER, MEDICARE | LOC: BHFA 11:00 | PROVIDERS: ATTEND Internal Medicine Cardiovascular Disease | DX: I48.91 Unspecified atrial fibrillation (principal) ==

== ENCOUNTER → 2018-01-10 | Outpatient (CLI) | payer OTHER, MEDICARE | LOC: BHFA 11:30 | PROVIDERS: ATTEND Internal Medicine Cardiovascular Disease | DX: I48.91 Unspecified atrial fibrillation (principal); R01.1 Cardiac murmur, unspecified ==

== ENCOUNTER → 2018-02-07 | Outpatient (CLI) | payer OTHER, MEDICARE | LOC: BRMIMAGING 14:59 | PROVIDERS: ATTEND Family Medicine | DX: Z13.820 Encounter for screening for osteoporosis (principal); M81.0 Age-related osteoporosis without current pathological fracture ==